=== PATIENT | male | born 1980 | race Caucasian/White ===

== ENCOUNTER 2021-04-30 19:25 | Emergency (ER) | payer OTHER ==
[~2021-04-30] VITALS: Ht 188 cm; Wt 116.6 kg
[2021-04-30 19:37] VITALS: BP 139/79
--- NOTE | 2021-04-30 19:44 | NUR ---
PATIENT SENT TO [facility]
[2021-04-30] MEDS ORDERED: KETOROLAC 30 MG/ML VIAL IM ONE (21:15)
--- NOTE | 2021-04-30 22:14 | NUR ---
patient placed in triage room
[2021-04-30 22:24] VITALS: BP 134/73
--- NOTE | 2021-04-30 22:30 | NUR ---
amarilis mancia spoke with patient about results
--- NOTE | 2021-04-30 22:31 | NUR ---
Patient discharged with v/s stable. Written and verbal after care instructions given and explained. Patient verbalized understanding. Ambulatory with steady gait. ID band removed. All questions addressed prior to discharge. Advised to follow up with PMD.
== END 2021-04-30 22:31 | disposition home or self-care (01) ==
LOC: MED 19:25
DX: M54.6 Pain in thoracic spine (principal); R20.0 Anesthesia of skin; F17.200 Nicotine dependence, unspecified, uncomplicated; Z88.8 Allergy status to other drugs, medicaments and biological substances; Z98.890 Other specified postprocedural states
CPT/HCPCS: 72128; 72131; 96372; 99284; J1885

== ENCOUNTER 2023-05-24 10:09 | Emergency (ER) | payer OTHER ==
[~2023-05-24] VITALS: Ht 188 cm; Wt 122.9 kg
[2023-05-24 10:27] VITALS: BP 125/78; PULSE 90; RESP 19; TEMP 98.2; O2SAT 91
[2023-05-24] MEDS ORDERED: AZIT250T4 PO (12:19)
[2023-05-24] MEDS ORDERED: DEXT5SYR3 PO (12:19)
[2023-05-24] MEDS ORDERED: SPAC1DEV10 MC (12:19)
[2023-05-24] MEDS ORDERED: PRED20TA5 PO (12:19)
[2023-05-24] MEDS ORDERED: PRON INH (12:25)
[2023-05-24 13:15] LABS: FLU A ANTIGEN negative (NEGATIVE)
[2023-05-24 13:16] LABS: FLU B ANTIGEN POSITIVE (NEGATIVE)
[2023-05-24] MEDS ORDERED: TAM75 PO (13:22)
== END 2023-05-24 12:28 | disposition home or self-care (01) ==
LOC: MED 10:09
DX: J44.1 Chronic obstructive pulmonary disease with (acute) exacerbation (principal); Z20.822 Contact with and (suspected) exposure to COVID-19; J10.1 Influenza due to other identified influenza virus with other respiratory manifestations; Z88.5 Allergy status to narcotic agent; Z88.8 Allergy status to other drugs, medicaments and biological substances
CPT/HCPCS: 71046; 99284